=== PATIENT | male | born 1960 | race Caucasian/White ===

== ENCOUNTER 2021-12-13 13:17 | Inpatient (IN) | payer BC ==
[2021-12-13] MEDS ORDERED: ONDANSETRON 4 MG TABLET PO ONE (13:37)
[2021-12-13] MEDS ORDERED: ACETAMINOPHEN 1000 MG/100 ML BAG IVPB ONE (13:37)
[2021-12-13] MEDS ORDERED: MAG HYDROX/AL HYDROX/SIMETH -MYLANTA- ORAL SUSPENSION PO ONE (13:38)
[2021-12-13] MEDS ORDERED: FAMOTIDINE 20 MG TABLET PO ONE (13:38)
[2021-12-13] MEDS ORDERED: ACETAMINOPHEN INJECTION 100 ML IVPB ONE (13:43)
[2021-12-13] MEDS ORDERED: FAMOTIDINE 20 MG TABLET ONE (13:43)
[2021-12-13] MEDS ORDERED: ONDANSETRON *ODT* 4 MG TABLET ONE ×2 (13:44→21:20)
[2021-12-13] MEDS ORDERED: MAG HYDROX/AL HYDROX/SIMETH 30 ML UNIT-DOSE CUP ONE (13:44)
[2021-12-13 13:50] VITALS: BP 145/75; PULSE 64; RESP 18; TEMP 97.7; BMI 23.9
[2021-12-13 14:26] LABS: HEMATOCRIT 44.6 % (35.4-49); HEMOGLOBIN 15.8 G/dL (11.7-16.9); MCH 32.3 pg (25.7-33.7); MCHC 35.3 g/dl (32.0-35.9); MEAN CELL VOLUME 91.3 fl (80-96); MEAN PLT VOLUME 7.7 fl (7.5-11.1); PLATELET COUNT 230.3 10^3/uL (134-434); RBC 4.88 10^6/uL (4.00-5.60); RDW 13.6 % (11.9-15.9); WHITE BLOOD COUNT 15.7 10^3/uL (4.0-10.8)
[2021-12-13 14:32] LABS: ALBUMIN 4.5 g/dl (3.4-5.0); BILIRUBIN,TOTAL 1.4 mg/dl (0.2-1); CALCIUM 9.3 mg/dl (8.5-10); TOT PROT 7.5 g/dl (6.4-8.2)
[2021-12-13] MEDS ORDERED: CEFOTETAN DISODIUM 1 GM in DEXTROSE 5%-WATER - 100 ML IVPB ONE (17:12)
[2021-12-13] MEDS ORDERED: morphine SULFATE 4 MG/ML VIAL IVPUSH ONE (17:17)
[2021-12-13] MEDS ORDERED: PIPERACILLIN/TAZOB 3.375 GM 3.375 GM in DEXTROSE 5%-WATER - 50 ML IVPB ONE (17:20)
[2021-12-13] MEDS ORDERED: morphine SULFATE 4 MG/ML VIAL ONE (17:22)
[2021-12-13] MEDS ORDERED: PIPERACILLIN/TAZOBACTAM 3.375 GM VIAL IVPB ONE (17:22)
[2021-12-13] MEDS ORDERED: morphine CARPU-JECT 4 MG/1 ML DISP.SYRIN IVPUSH PRN (18:25)
[2021-12-13] MEDS ORDERED: ACETAMINOPHEN 1000 MG/100 ML BAG IVPB PRN (18:26)
[2021-12-13] MEDS ORDERED: DEXTROSE 5%-LACTATED RINGERS 1,000 ML IV SCH (18:30)
[2021-12-13 19:20] LABS: INR 1.11 (0.83-1.09); PROTHROMBIN TIME (PATIENT) 12.8 SEC (9.7-13.0)
[2021-12-13 19:23] LABS: ACTIVATED PTT 29.1 SECONDS (25.2-36.5)
[2021-12-13] MEDS ORDERED: ONDANSETRON *ODT* 4 MG TABLET SL ONE (21:19)
[2021-12-14] MEDS ORDERED: PIPERACILLIN/TAZOB 3.375 GM 3.375 GM in DEXTROSE 5%-WATER - 50 ML IVPB SCH (02:00)
== END 2021-12-13 21:01 | disposition left against medical advice (07) | DRG 392 ==
LOC: FER 13:17 → FM/S 17:54 → FER 21:01
PROVIDERS: ADMIT Internal Medicine; ATTEND Internal Medicine
DX: R10.31 Right lower quadrant pain (principal); Z53.29 Procedure and treatment not carried out because of patient's decision for other reasons
CPT/HCPCS: 36415; 74177-TC; 80053; 81003; 81015; 83690; 85027; 85610; 85730; 86850; 86900; 86901; 93005; 93010; 99285-25; C9803-CS; Q0162; Q9967; U0003; U0005